=== PATIENT | male | born 1965 | race Caucasian/White ===

== ENCOUNTER 2017-02-21 11:25 | Emergency (ER) | payer OTHER ==
[2017-02-21 11:36] VITALS: BP 210/135; TEMP 98.4; BMI 43.3
--- NOTE | 2017-02-21 12:25 | DI ---
EXAM: Three views of the right ankle HISTORY: Fall with pain. COMPARISON: Right foot x-rays same day and tibia and fibula x-rays same day FINDINGS: There is an oblique nondisplaced fracture through the distal fibula with the fracture exte nding into the joint space. The distal tibia is normal. There is no lytic or blastic lesion. Ther e is significant soft tissue swelling laterally. The osseous structures demonstrate a plantar heel spur. IMPRESSION: Oblique nondisplaced fracture of the distal fibula with adjacent soft tissue swelling.
--- NOTE | 2017-02-21 12:25 | DI ---
EXAM: Views of the right tibia-fibula HISTORY: Patient fell. TECHNIQUE: AP lateral views of the right tibia-fibula were obtained. FINDINGS: There is an oblique fracture of the distal fibula. The tibia appears intact. IMPRESSION: There is a mildly displaced oblique fracture of the distal fibula.
--- NOTE | 2017-02-21 12:26 | DI ---
EXAM: Views of the right foot HISTORY: Fall TECHNIQUE: AP lateral, oblique views of the right foot were obtained. FINDINGS: No acute fractures are seen. There is anatomic alignment. The soft tissues are normal. The joint spaces are normal. There appears to be an oblique fracture of the distal fibula. IMPRESSION: No acute fracture dislocation seen within the right foot. Oblique fracture of the distal fibula.
--- NOTE | 2017-02-21 12:46 | ED.PDOC ---
General ED Provider: Dr. MAXX GROSS Chief Complaint: Extremity Pain/Injury Stated Complaint: right ankle pain, foot pain Time Seen by Physician: 11:30 (fall) Mode of Arrival: Walk-In Information Source: Patient Exam Limitations: No limitations Primary Care Provider: ALEJANDRO HUDSON Nursing and Triage Documentation Reviewed and Agree: Yes Musculoskeletal Complaint Exam - Ankle/Foot Complaint/Exam Location of Injury: Reports: Left, Ankle, Foot Mechanism of Injury: Reports: No known trauma Onset/Duration: fall at his house 9 am Symptoms Are: Reports: Still present Onset of Pain: Reports: Hours Initial Severity: Moderate Location: Reports: Discrete Character: Reports: Aching, Throbbing Alleviating: Reports: Rest Aggravating: Reports: None Able to Bear Weight: Yes Associated Signs and Symptoms: Reports: Swelling. Denies: Redness, Bruising, Fever, Weakness, Numbness, Tingling Related History: Reports: Similar episode Gout Risk Factors: Reports: None Related Surgical History: Reports: None Achilles Tendon Abnormality: Yes Tenderness: Present: Lateral malleolus Differential Diagnosis: Closed Fracture Review of Systems - Review Of Systems Constitutional: Reports: No symptoms Eyes: Reports: No symptoms Ears, Nose, Mouth, Throat: Reports: No symptoms Respiratory: Reports: No symptoms Cardiac: Reports: No symptoms GI: Reports: No symptoms : Reports: No symptoms Musculoskeletal: Reports: Joint pain (right ankle pain) Skin: Reports: No symptoms Neurological: Reports: No symptoms Endocrine: Reports: No symptoms Hematologic/Lymphatic: Reports: No symptoms All Other Systems: Reviewed and Negative Past Medical History - Past Medical History Previously Healthy: Yes Endocrine: Reports: None Cardiovascular: Reports: Hypertension Respiratory: Reports: None Hematological: Reports: None Gastrointestinal: Reports: None Genitourinary: Reports: None Neuro/Psych: Reports: None Musculoskeletal: Reports: None Cancer: Reports: None - Surgical History General Surgical History: Reports: None - Family History Family History: Reports: None - Social History Smoking Status: Chews tobacco Hx Substance Use: No Alcohol Screening: None Physical Exam - Physical Exam Appearance: Well-appearing, No pain distress, Well-nourished Eyes: DENNIS, EOMI, Conjunctiva clear ENT: Ears normal, Nose normal, Oropharynx normal Respiratory: Airway patent, Breath sounds clear, Breath sounds equal, Respirations nonlabored Cardiovascular: RRR, Pulses normal, No rub, No murmur GI/: Soft, Nontender, No masses, Bowel sounds normal, No Organomegaly Musculoskeletal: Limited ROM (right ankle edema and pain) Skin: Warm, Dry, Normal color Neurological: Sensation intact, Motor intact, Reflexes intact, Cranial nerves intact, Alert, Oriented Psychiatric: Affect appropriate, Mood appropriate Interpretation - Radiology Interpretation Radiology Interpretation By: Radiologist Radiology Results: No acute changes Critical Care Note - Critical Care Note Total Time (mins): 0 Course - Course Orders, Labs, Meds: Orders Category Date Time Status Air cast [ED SPLINT APPLICATION] .ONCE EMERGENCY 02/21/17 12:43 Active CRUTCHES [ED CRUTCHES] .ONCE EMERGENCY 02/21/17 12:43 Active ANKLE, RIGHT MIN 3 VIEWS Stat RADS 02/21/17 11:41 Completed FOOT, RIGHT 3 VIEWS Stat RADS 02/21/17 11:41 Completed TIBIA/FIBULA, RIGHT 2 VIEW Stat RADS 02/21/17 11:42 Completed Vital Signs: Temp Pulse Resp BP Pulse Ox 02/21/17 11:25 98.4 F 70 18 210/135 H 96 Departure - Departure Time of Disposition: 12:47 Disposition: HOME SELF-CARE Discharge Problem: Ankle fracture, right Qualifiers: Encounter type: initial encounter Fracture type: closed Qualifier Code: ( S82.891A) Other fracture of right lower leg, initial encounter for closed fracture Instructions: Ankle Fracture (ED) Condition: Good Pt referred to PMD for follow-up: Yes Additional Instructions: Please call your Family Physician as soon as possible to schedule a follow-up appointment. Prescriptions: Hydrocodone/Acetaminophen [[place] 10-325 Tablet] 1 each PO Q8HR #20 tablet Allergies/Adverse Reactions: Allergies codeine Adverse Reaction (Verified 02/21/17 11:30) iodine Adverse Reaction (Verified 02/21/17 11:30) Penicillins Adverse Reaction (Verified 02/21/17 11:30) Home Medications: Ambulatory Orders Hydrochlorothiazide 25 mg PO DAILY 03/21/13 Lisinopril [Zestril] 40 mg PO DAILY 03/21/13 Hydrocodone/Acetaminophen [[place] 10-325 Tablet] 1 each PO Q8HR #20 tablet Metoprolol Succinate [Toprol Xl] 100 mg PO DAILY 02/21/17 Disposition Discussed With: Patient
== END 2017-02-21 13:15 | disposition home or self-care (01) ==
LOC: ED 11:25
DX: S82.891A Other fracture of right lower leg, initial encounter for closed fracture (principal); F17.220 Nicotine dependence, chewing tobacco, uncomplicated; W19.XXXA Unspecified fall, initial encounter
CPT/HCPCS: 99283